=== PATIENT | female | born 1970 | race Caucasian/White ===

== ENCOUNTER 2020-10-30 05:59 | Emergency (ER) | payer BC, OTHER ==
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
[2020-10-30] MEDS ORDERED: HYDROmorphone 1 MG/ML Syringe IVPUSH ONE (07:02)
[2020-10-30] MEDS ORDERED: Ondansetron 4 MG/2 ML SDV IVPUSH ONE (07:03)
[2020-10-30] MEDS ORDERED: Sodium Chloride 0.9% 1,000 ML IV SCH (07:15)
[2020-10-30 07:16] VITALS: BP 101/70; PULSE 80
--- NOTE | 2020-10-30 09:02 | CR ---
Right ankle: 2 views of the right ankle were obtained. Comparison: No previous study. Distal fracture is seen within the tibia at the junction of the mid and distal one third diaphysis. This is displaced by a shaft width as well as anteriorly angulated. Fracture is also noted within the proximal fibular diaphysis. Ankle mortise is symmetric. No additional fracture or other bony abnormality is appreciated on this study. Impression: 1. Tibial diaphyseal fracture showing displacement and angulation. Proximal fibular shaft fracture is noted. 2. Ankle mortise appears within normal limits. Diagnostic code #3
--- NOTE | 2020-10-30 09:12 | CR ---
Right tibia and fibula: 2 views of the right tibia and fibula were obtained. Comparison: Prior ankle study performed earlier in the same day. Displaced fracture is noted within the tibial diaphysis located at the junction of the mid and distal one third area. There is mildly displaced proximal fibular diaphyseal fracture. Soft tissue swelling is noted. No additional abnormality is appreciated. Impression: 1. Displaced tibial fracture and proximal fibular fracture as noted above. 2. Soft tissue swelling. Diagnostic code #3
== END 2020-10-30 09:07 ==
LOC: JD.ED 05:59
DX: S82.831A Other fracture of upper and lower end of right fibula, initial encounter for closed fracture (principal); S82.301A Unspecified fracture of lower end of right tibia, initial encounter for closed fracture; Z72.0 Tobacco use; Z88.8 Allergy status to other drugs, medicaments and biological substances; Z88.0 Allergy status to penicillin; Z88.2 Allergy status to sulfonamides; X58.XXXA Exposure to other specified factors, initial encounter; Z20.822 Contact with and (suspected) exposure to COVID-19
CPT/HCPCS: 29515; 73590; 73610; 87635; 96374; 96375; 99285; J1170; J2405; J7030; 99283; U0002

== ENCOUNTER 2022-11-24 11:56 | Emergency (ER) | payer BC ==
[2022-11-24] MEDS ORDERED: Ondansetron 4 MG/2 ML SDV IVPUSH ONE (12:09)
[2022-11-24] MEDS ORDERED: Sodium Chloride 0.9% 10 ML Syringe FLUSH PRN (12:09)
[2022-11-24] MEDS ORDERED: Sodium Chloride 0.9% 1,000 ML IV ONE (12:09)
[2022-11-24] MEDS ORDERED: Loperamide 2 MG Cap PO ONE (12:09)
[2022-11-24] MEDS ORDERED: Iopamidol 612 MG/ML 100 ML Bottle IVPUSH ONE (12:24)
[2022-11-24] MEDS ORDERED: Sodium Chloride 0.9% 10 ML Syringe FLUSH ONE (12:30)
[2022-11-24 13:13] LABS: ESTIMATED GFR 103 mL/min (>60)
[2022-11-24] MEDS ORDERED: HYDROmorphone 0.5 MG/0.5 ML Syringe IVPUSH ONE ×2 (13:13→13:44)
[2022-11-24] MEDS ORDERED: Metoclopramide 10 MG/2 ML SDV IVPUSH ONE (13:44)
[2022-11-24] MEDS ORDERED: Dicyclomine 10 MG Cap PO ONE (13:49)
[2022-11-24] MEDS ORDERED: Ketorolac 30 MG/ML SDV IVPUSH ONE (13:56)
[2022-11-24 14:46] VITALS: BP 153/79; PULSE 57
== END 2022-11-24 14:46 | disposition home or self-care (01) ==
LOC: JD.ED 11:56
DX: K52.9 Noninfective gastroenteritis and colitis, unspecified (principal); Z88.0 Allergy status to penicillin; Z88.2 Allergy status to sulfonamides; Z88.8 Allergy status to other drugs, medicaments and biological substances
CPT/HCPCS: 36415; 74177; 80053; 81001; 83690; 85025; 86140; 96361; 96374; 96375; 99284; A9270; J1170; J1885; J2405; J2765; J3490; J7030; Q9967

== ENCOUNTER 2022-11-29 08:11 | Emergency (ER) | payer BC ==
[2022-11-29 08:27] VITALS: BP 147/101; PULSE 67
[2022-11-29] MEDS ORDERED: Lactated Ringers 1,000 ML IV ONE ×2 (08:46→11:46)
[2022-11-29] MEDS ORDERED: Haloperidol Lactate 5 MG/ML SDV IVPUSH ONE (08:46)
[2022-11-29] MEDS ORDERED: Sodium Chloride 0.9% 10 ML Syringe FLUSH PRN ×2 (08:50→11:48)
[2022-11-29] MEDS ORDERED: Iopamidol 612 MG/ML 100 ML Bottle IVPUSH ONE ×2 (08:50→11:48)
[2022-11-29] MEDS ORDERED: Ketorolac 30 MG/ML SDV IVPUSH ONE (09:45)
[2022-11-29 10:27] LABS: CORONAVIRUS COVID-19 NAA NEGATIVE (NEGATIVE)
== END 2022-11-29 13:30 | disposition home or self-care (01) ==
LOC: JD.ED 08:11
DX: R10.9 Unspecified abdominal pain (principal); Z88.8 Allergy status to other drugs, medicaments and biological substances; Z88.0 Allergy status to penicillin; Z88.2 Allergy status to sulfonamides; Z20.822 Contact with and (suspected) exposure to COVID-19
CPT/HCPCS: 0240U; 36415; 74177; 80053; 81003; 83605; 83690; 85025; 96361; 96374; 96375; 99284; J1630; J1885; J3490; J7120; Q9967